=== PATIENT | male | born 1970 | race Hispanic/Latino ===

== ENCOUNTER 2016-06-20 09:57 | Emergency (ER) | payer SELFPAY ==
[~2016-06-20] VITALS: Ht 175.3 cm; Wt 163.5 kg
[~2016-06-20 09:57] MED LIST: CITALOPRAM HBR20 MG PO; FLEXERIL10 MG PO; NAPROSYN500 MG PO; NAPROXEN500 MG PO; TORADOL10 MG PO
[2016-06-20 10:13] VITALS: BP 119/82
[2016-06-20] MEDS ORDERED: DAILY VALUE1 EACH PO (10:52)
== END 2016-06-20 10:56 | disposition home or self-care (01) ==
LOC: EME 09:57
DX: R04.0 Epistaxis (principal); F17.200 Nicotine dependence, unspecified, uncomplicated
CPT/HCPCS: 99281; 99283

== ENCOUNTER 2016-07-19 21:54 | Emergency (ER) | payer OTHER ==
[~2016-07-19] VITALS: Ht 175.3 cm; Wt 165.0 kg
[~2016-07-19 21:54] MED LIST changes: +DAILY VALUE1 EACH PO
[2016-07-19 22:30] LABS: HEMATOCRIT 37.6 % (38.0-50.0); MCH 27.6 PG (29.0-34.0); MCHC 30.9 G/DL (30.0-36.0); MCV 89.5 FL (86-99); MEAN PLAT.VOLUME 10.8 uM^3 (9.0-12.4); PLATELET COUNT 196 K/uL (156-360); RBC DIS.WIDTH-CV 13.6 % (11.8-14.6); RBC DIS.WIDTH-SD 44.3 % (39-53); WHITE BLOOD COUNT 7.7 K/uL (4.1-10.2)
[2016-07-19 22:40] LABS: CHLORIDE 108 mEq/L (99-109); POTASSIUM 4.1 mEq/L (3.7-5.4); SODIUM 141 mEq/L (136-147)
[2016-07-19 22:41] LABS: GLUCOSE 103 mg/dL (70-99)
[2016-07-19 22:43] LABS: ANION GAP 8 MEQ/L (2-14)
[2016-07-19 22:45] LABS: GFR ESTIMATE (CALCULATED) > 59 mL/min/
[2016-07-19 22:46] LABS: UREA NITROGEN (BUN) 15 mg/dL (9-23)
[2016-07-19 22:51] LABS: TROP-I INTERPRETATION NEGATIVE; TROPONIN-I < 0.01 ng/mL (0.0-0.30)
[2016-07-20 03:25] LABS: TROP-I INTERPRETATION NEGATIVE; TROPONIN-I < 0.01 ng/mL (0.0-0.30)
[2016-07-20 04:28] VITALS: BP 118/66
== END 2016-07-20 04:29 | disposition home or self-care (01) ==
LOC: EME 21:54
PROVIDERS: Emergency Medicine
DX: R07.9 Chest pain, unspecified (principal); M54.12 Radiculopathy, cervical region; F17.200 Nicotine dependence, unspecified, uncomplicated
CPT/HCPCS: 71020; 80048; 84484; 85027; 93005; 99281; 99284

== ENCOUNTER 2016-10-06 19:36 | Inpatient (IN) | payer OTHER ==
[~2016-10-06] VITALS: Ht 182.9 cm; Wt 160.3 kg
[2016-10-06 22:00] LABS: HEMATOCRIT 38.8 % (38.0-50.0); MCH 27.6 PG (29.0-34.0); MCHC 31.4 G/DL (30.0-36.0); MCV 87.8 FL (86-99); PLATELET COUNT 181 K/uL (156-360); RBC DIS.WIDTH-CV 13.9 % (11.8-14.6); RBC DIS.WIDTH-SD 44.8 % (39-53); RED BLOOD COUNT 4.42 M/uL (4.00-5.50); WHITE BLOOD COUNT 7.4 K/uL (4.1-10.2)
[2016-10-06 22:13] LABS: CHLORIDE 108 mEq/L (99-109); SODIUM 143 mEq/L (136-147)
[2016-10-06 22:15] LABS: GLUCOSE 85 mg/dL (70-99)
[2016-10-06 22:16] LABS: ANION GAP 8 MEQ/L (2-14)
[2016-10-06 22:17] LABS: TOTAL BILIRUBIN 0.3 mg/dL (0.0-1.0)
[2016-10-06 22:18] LABS: ALKALINE PHOSPHATASE 64 IU/L (3-129)
[2016-10-06 22:19] LABS: GFR ESTIMATE (CALCULATED) 58 mL/min/
[2016-10-06 22:20] LABS: UREA NITROGEN (BUN) 14 mg/dL (9-23)
[2016-10-07 04:33] LABS: INTER. NORMALIZED RATIO 1.1; PROTHROMBIN TIME 10.8 (9.2-11.2); PTT 31.3 (25-32)
[2016-10-07 06:02] LABS: TROP-I INTERPRETATION NEGATIVE; TROPONIN-I < 0.01 ng/mL (0.0-0.30)
[2016-10-07 08:01] VITALS: BP 117/65
[2016-10-07 11:51] VITALS: BP 123/66
[2016-10-07 13:03] LABS: TROP-I INTERPRETATION NEGATIVE; TROPONIN-I < 0.01 ng/mL (0.0-0.30)
[2016-10-07 16:23] VITALS: BP 124/67
[2016-10-07 18:53] LABS: TROP-I INTERPRETATION NEGATIVE; TROPONIN-I < 0.01 ng/mL (0.0-0.30)
[2016-10-07 19:40] VITALS: BP 119/74
[2016-10-07 23:46] VITALS: BP 115/64
[2016-10-08] MEDS ORDERED: TORADOL10 MG PO (01:45)
[2016-10-08 03:56] VITALS: BP 124/57
[2016-10-08 05:47] LABS: HEMATOCRIT 39.1 % (38.0-50.0); MCH 27.4 PG (29.0-34.0); MCHC 31.2 G/DL (30.0-36.0); MCV 87.9 FL (86-99); MEAN PLAT.VOLUME 10.7 uM^3 (9.0-12.4); PLATELET COUNT 190 K/uL (156-360); RBC DIS.WIDTH-CV 13.7 % (11.8-14.6); RBC DIS.WIDTH-SD 44.2 % (39-53); RED BLOOD COUNT 4.45 M/uL (4.00-5.50); WHITE BLOOD COUNT 6.7 K/uL (4.1-10.2)
[2016-10-08 05:55] LABS: INTER. NORMALIZED RATIO 1.1; PROTHROMBIN TIME 10.9 (9.2-11.2)
[2016-10-08 06:10] LABS: ALKALINE PHOSPHATASE 60 IU/L (3-129); ANION GAP 6 MEQ/L (2-14); CHLORIDE 108 MEQ/L (99-109); GFR ESTIMATE (CALCULATED) > 59 mL/min/; GLUCOSE 92 mg/dL (70-99); POTASSIUM 4.1 MEQ/L (3.7-5.4); SAMPLE HEMOLYSIS CHECK 0; SAMPLE ICTERIC CHECK 0; SAMPLE LIPEMIA CHECK 0; SODIUM 139 MEQ/L (136-147); TOTAL BILIRUBIN 0.4 MG/DL (0.0-1.0); UREA NITROGEN (BUN) 14 mg/dL (9-23)
[2016-10-08 08:12] VITALS: BP 133/64
[2016-10-08] MEDS ORDERED: ELIQUIS5 MG PO (08:46)
== END 2016-10-08 10:38 | disposition home or self-care (01) | DRG 300 ==
LOC: EME 19:36 → EDOF 10-07 04:53 → 4SOUTH 10-07 07:04
PROVIDERS: Hospitalist; Nurse Practitioner Family
DX: I82.443 Acute embolism and thrombosis of tibial vein, bilateral (principal); R07.89 Other chest pain; E66.01 Morbid (severe) obesity due to excess calories; Z68.42 Body mass index [BMI] 45.0-49.9, adult; F17.200 Nicotine dependence, unspecified, uncomplicated
CPT/HCPCS: 71275; 80053; 84484; 85027; 85610; 85730; 93005; 93970; 99281; 99284; J0690; J1650